=== PATIENT | female | born 1945 | race Caucasian/White ===

== ENCOUNTER 2018-08-05 10:46 | Inpatient (IN) | payer MEDICARE, OTHER ==
[~2018-08-05 10:46] MED LIST: ACYCLOVIR 800800 MG PO; ALENDRONATE SODI5 MG PO; ALLERGY25 MG PO; ANTIVERT25 MG PO; ASPIRIN81 M2 PO; CELEXA10 MG PO; CLONAZEPAM 0.50.5 M1 PO; FISH OIL 1,001000 M2 PO; HYDROCODONE-AP1 EAC6 PO; IBUPROFEN 600600 M1 PO; IBUPROFEN 800800 M1 PO; LIPITOR10 MG PO; LISINOPRIL20 MG PO; METFORMIN HCL500 MG PO; OSTEO BI-FLEX1 EAC1 PO; ROBAXIN 750 MG750 M1 PO; TUMS PO; UNICOMPLEX M TA1 TA1 PO; VITAMIN D1000 UNI1 PO; ZOCOR40 MG PO; ZOFRAN ODT4 MG PO; [UNRECOGNIZED DRUG - OTHER]
[2018-08-05 11:19] LABS: HEMATOCRIT 38.5 % (37.0-47.0); HEMOGLOBIN 13.3 gm/dL (12.0-15.0); MCH 30.7 pg (26.0-34.0); MCHC 34.6 g/dL (28.0-37.0); MCV 88.7 fL (80.0-100.0); MPV 6.9 fl. (7.2-11.1); RBC 4.34 mil/uL (4.20-5.00); RDW-CV 13.2 % (10.5-14.5); WBC 8.5 thou/uL (4.0-11.0)
[2018-08-05 11:32] LABS: ALBUMIN 3.8 g/dL (3.4-5.0); CALCIUM 9.5 mg/dL (8.5-10.1); CREATININE 0.8 mg/dL (0.6-1.3); POTASSIUM 3.8 mmol/L (3.5-5.1); TOTAL BILIRUBIN 0.5 mg/dL (<0.1-1.0); TOTAL PROTEIN 8.3 g/dL (6.4-8.2)
[2018-08-05 20:30] VITALS: BP 141/69
--- NOTE | 2018-08-05 23:43 | NUR ---
ORDERS GIVEN TO ADMIT PATIENT TO OBSERVATION STATUS UNDER HOSPITALIST. PATIENT HERE FROM PACU AT APPROXIMATELY 1999. PATIEN VERY DROWSY BUT DOES ANSWER QUESTIONS APPROPRIATELY. FAMILY HERE WITH PATIENT. VSS ON 2L 02 VIA NASAL CANNULA. PATIENT ON CONTINUOUS PULSE OXIMETRY. FAMILY STAYING WITH PATIENT TONIGHT. FAMILY AND PATIENT INSTRUCTED TO USE CALL LIGHT WHEN NEEDING ASSISTANCE. PATIENT IS TO REMAIN NWB TO LLE. HOURLY ROUNDS MADE. WILL CONTINUE TO MONITOR.
[2018-08-06 07:40] VITALS: BP 113/56
--- NOTE | 2018-08-06 10:57 | NUR ---
PT.ALERT AND ORIENTED. DAUGHTER,MOE, AND GRANDAUGHTER AT BEDSIDE. PT.LIVES ALONE. SHE FX HER ANKLE A COUPLE OF WEEKS AGO. SHE HAS BEEN STAYING ALONE THE PAST 2 WEEKS BUT DAUGHTER CHECKS ON HER BEFORE SHE GOES TO WORK AND AT BEDTIME. LEAVES A COOLER NEXT TO HER RECLINER WITH FOOD AND DRINK IN IT. NEIGHBOR AND DAUGHTER'S CHECKS ON PT.DURING THE DAY. DAUGHTER HAS BEEN A PHYSICAL THERAPIST. PT.HAS A WALKER,KNEE SCOOTER,COMMODE AND SHOWER CHAIR. SHE IS NORMALLY INDEPENDENT AT HOME,PREVIOUS TO INJURY. DISCUSSED HOME HEALTH. DAUGHTER THOUGHT AN AIDE WOULD COME AND HELP HER THROUGH THE DAY. EXPLAINED PT/OT WAS ORDERED AND THEY WOULD ONLY COME 3 TIMES/WEEK FOR ABOUT AN HR.AT A TIME. TOLD HER THEY COULD HIRE PRIVATE DUTY. SHE SAID WE MADE IT THE PREVIOUS 2 WEEKS SO WE'LL MAKE IT NOW. PT.SAID KNOWS HOW TO NWB AND USE HER KNEE SCOOTER. PT.CHOSE [facility] FOR HOME HEALTH. WILL ARRANGE.
[2018-08-06 11:24] VITALS: BP 113/56
[2018-08-06 12:14] VITALS: BP 79/40
--- NOTE | 2018-08-06 15:38 | NUR ---
ASSUMED CARE OF PATEINT AT APPROX 0730. ALERT AND OREINTED X4. ASSESSMENT COMPLETED AND CHARTED. VSS ON ROOM AIR. NO COMPLAINTS OF NAUSEA, OR SOA. PAIN HAS BEEN MANAGED WITH ORAL MEDICATION. PATIENT WORKED WELL WITH THERAPY AND PROGRESSED TOWARD GOALS. PATIENT DISCHARED AT 1515 WITH ALL PERSONAL BELONGINGS AND DISCHARGE INFORMATION.
== END 2018-08-06 15:15 | disposition home health service (06) | DRG 494 ==
LOC: M.SUR 10:46 → M.ORTHSURG 19:58
PROVIDERS: Orthopaedic Surgery; ADMIT Internal Medicine
PROC: 0QSK04Z Reposition Left Fibula with Internal Fixation Device, Open Approach (ICD-10-PCS; principal; 2018-08-05)
PROC: 0QSH04Z Reposition Left Tibia with Internal Fixation Device, Open Approach (ICD-10-PCS; principal; 2018-08-05)
PROC: 0SSG0ZZ Reposition Left Ankle Joint, Open Approach (ICD-10-PCS; 2018-08-05)
DX: S82.842A Displaced bimalleolar fracture of left lower leg, initial encounter for closed fracture (principal); E11.9 Type 2 diabetes mellitus without complications; E78.5 Hyperlipidemia, unspecified; F32.9 Major depressive disorder, single episode, unspecified; I10 Essential (primary) hypertension; Z79.82 Long term (current) use of aspirin; Z79.899 Other long term (current) drug therapy; Z88.1 Allergy status to other antibiotic agents; Z88.8 Allergy status to other drugs, medicaments and biological substances; X58.XXXA Exposure to other specified factors, initial encounter; Y93.89 Activity, other specified; Y92.89 Other specified places as the place of occurrence of the external cause; Y99.8 Other external cause status